=== PATIENT | female | born 1980 | race Caucasian/White ===

== ENCOUNTER 2018-05-30 15:13 | Emergency (ER) | payer BC ==
[2018-05-30 15:44] VITALS: BP 119/66
--- NOTE | 2018-05-30 16:04 | UC ---
Complaint Female HPI - HPI Summary HPI Summary: Patient has had 4 days of urinary urgency and lower abdomnal pressure, some flank pain on and off. she has been increaing her fluid intake over the past few days as well to flush it out. - History Of Current Complaint Chief Complaint: UCGU Stated Complaint: URINARY Time Seen by Provider: 05/30/18 15:32 Hx Obtained From: Patient Hx Last Menstrual Period: 05/11/18 ?: No Onset/Duration: Sudden Onset, Lasting Days Timing: Constant Severity Initially: Mild Severity Currently: Moderate Pain Intensity: 3 Aggravating Factor(s): Urination Associated Signs And Symptoms: Positive: Back Pain - Allergies/Home Medications Allergies/Adverse Reactions: Allergies Allergy/AdvReac Type Severity Reaction Status Date / Time No Known Allergies Allergy Verified 05/30/18 15:35 Home Medications: Home Medications B1/B2/Niacin/B12/Protease [B-Complex/B-12] 1 tab PO DAILY 05/30/18 [History Confirmed 05/30/18] [place]-3/Dha/Epa/Fish Oil [Fish Oil] 2 cap PO DAILY 05/30/18 [History Confirmed 05/30/18] PMH/Surg Hx/FS Hx/Imm Hx Previously Healthy: Yes - Surgical History Surgical History: Yes Surgery Procedure, Year, and Place: e-sure placement. e-sure removal - Family History Known Family History: Positive: Hypertension - Social History Alcohol Use: Occasionally Substance Use Type: None Smoking Status (MU): Never Smoked Tobacco Review of Systems Constitutional: Negative Skin: Negative Eyes: Negative ENT: Negative Respiratory: Negative Cardiovascular: Negative Gastrointestinal: Negative Genitourinary: Dysuria, Frequency, Urgency Motor: Negative Neurovascular: Negative Musculoskeletal: Negative Neurological: Negative Psychological: Negative Is Patient Immunocompromised?: No All Other Systems Reviewed And Are Negative: Yes Physical Exam Triage Information Reviewed: Yes Appearance: Well-Appearing, Well-Nourished, Pain Distress Vital Signs: Initial Vital Signs Temp 99.2 F 05/30/18 15:37 Pulse 66 05/30/18 15:37 Resp 20 05/30/18 15:37 BP 119/66 05/30/18 15:37 Pulse Ox 99 05/30/18 15:37 Vital Signs Reviewed: Yes Eye Exam: Normal ENT Exam: Normal Dental Exam: Normal Neck exam: Normal Respiratory Exam: Normal Respiratory: Positive: Chest non-tender, Lungs clear, Normal breath sounds Cardiovascular Exam: Normal Cardiovascular: Positive: RRR, No Murmur, Pulses Normal Abdominal Exam: Normal Abdomen Description: Positive: Nontender, No Organomegaly, Soft, CVA Tenderness (R) - neg, CVA Tenderness (L) - neg Musculoskeletal Exam: Normal Musculoskeletal: Positive: Strength Intact, ROM Intact, No Edema Neurological Exam: Normal Neurological: Positive: Alert, Muscle Tone Normal Psychological Exam: Normal Skin Exam: Normal Complaint Female Dx - Course Course Of Treatment: hx obtained, exam performed ,meds reviewed, UA was negative , but symptoms persist, urine culture was sent, treated with short course and diflucan. - Differential Dx/Diagnosis Differential Diagnosis/HQI/PQRI: Urinary Tract Infection, Other - vaginitis Provider Diagnoses: dysuria. urinary frequency Discharge - Sign-Out/Discharge Documenting (check all that apply): Discharge/Admit/Transfer - Discharge Plan Condition: Stable Disposition: HOME Prescriptions: Ciprofloxacin TAB* [Cipro 500 MG TAB*] 500 mg PO BID #6 tab Fluconazole [Diflucan 150 MG (NF)] 150 mg PO ONCE #1 tab Patient Education Materials: Dysuria (ED) Referrals: Rachel Sorensen PA [Primary Care Provider] - Additional Instructions: 1. Take the antibiotic twice a day as prescribed. 2. After you finish the cipro, the next day take the Diflucan one time. 3. I have sent your urine for culture, will call if any change to treatment needs to be done. - Billing Disposition and Condition Condition: STABLE Disposition: Home
== END 2018-05-30 16:00 | disposition home or self-care (01) ==
LOC: UCCORT 15:13
DX: R30.0 Dysuria (principal); R35.0 Frequency of micturition
CPT/HCPCS: 81003; 84702; 87086; 99211; G0463

== ENCOUNTER 2019-01-20 08:41 | Emergency (ER) | payer SELFPAY ==
[2019-01-20 08:59] VITALS: BP 120/67
--- NOTE | 2019-01-20 09:39 | ED ---
HPI Chest Pain - HPI Summary HPI Summary: 38 yr old female with the complaint of chest pain, dizziness. Onset two days ago, constant, and feels like pressure, heaviness in chest. She has discomfort in throat with breathing but not any other time. She has a family history of CAD in her father. She feels light headed and dizzy. Pain is moderate. She states she has right calf pain intermittently with swelling over the past month. - History of Current Complaint Chief Complaint: UCChestPain Time Seen by Provider: 01/20/19 09:03 Hx Last Menstrual Period: 01/11/19 Pain Intensity: 4 - Allergy/Home Medications Allergies/Adverse Reactions: Allergies Allergy/AdvReac Type Severity Reaction Status Date / Time No Known Allergies Allergy Verified 01/20/19 08:52 Home Medications: Home Medications Fluticasone NASAL SPRAY 50MCG* [Flonase NASAL SPRAY 50MCG*] 2 spray BOTH NARES DAILY 01/20/19 [History Confirmed 01/20/19] PMH/Surg Hx/FS Hx/Imm Hx - Surgical History Surgery Procedure, Year, and Place: Essure Removal; Essure Placement; T&A Infectious Disease History: No Infectious Disease History: Denies: Traveled Outside the [place] in Last 30 Days - Family History Known Family History: Positive: Hypertension - Social History Alcohol Use: Occasionally Substance Use Type: Reports: None Smoking Status (MU): Never Smoked Tobacco Review of Systems Positive: Chest Pain Positive: Shortness Of Breath Positive: Other - calf pain All Other Systems Reviewed And Are Negative: Yes Physical Exam Triage Information Reviewed: Yes Vital Signs On Initial Exam: Initial Vitals Temp Pulse Resp BP Pulse Ox 98.2 F 76 16 120/67 100 01/20/19 08:53 01/20/19 08:53 01/20/19 08:53 01/20/19 08:53 01/20/19 08:53 Vital Signs Reviewed: Yes Appearance: Positive: Well-Appearing, No Pain Distress Skin: Positive: Warm, Skin Color Reflects Adequate Perfusion Head/Face: Positive: Normal Head/Face Inspection Eyes: Positive: EOMI ENT: Positive: Normal ENT inspection Neck: Positive: Nontender Respiratory/Lung Sounds: Positive: Clear to Auscultation, Breath Sounds Present Cardiovascular: Positive: RRR. Negative: Murmur Abdomen Description: Positive: Nontender Musculoskeletal: Positive: Strength/ROM Intact Neurological: Positive: Sensory/Motor Intact, Alert, Oriented to Person Place, Time, CN Intact II-III, Normal Gait, Speech Normal Psychiatric: Positive: Normal - [place] Coma Scale Best Eye Response: 4 - Spontaneous Best Motor Response: 6 - Obeys Commands Best Verbal Response: 5 - Oriented Coma Scale Total: 15 Diagnostics - Vital Signs Vital Signs Temp Pulse Resp BP Pulse Ox 01/20/19 08:53 98.2 F 76 16 120/67 100 - Laboratory Lab Statement: Any lab studies that have been ordered have been reviewed, and results considered in the medical decision making process. - EKG 01/20/19 Cardiac Rate: NL - WA interval short EKG Rhythm: Sinus Rhythm ST Segment: Normal Ectopy: None Chest Pain Course/Dx - Course Course Of Treatment: 38 yr old with chest pain, dizziness. She refuses EMS transport to the ER for further work up and management. - Diagnoses Provider Diagnoses: Chest pain, Dizziness Discharge - Sign-Out/Discharge Documenting (check all that apply): Patient Departure All imaging exams completed and their final reports reviewed: No Studies - Discharge Plan Condition: Good Disposition: AGAINST MEDICAL ADVICE Referrals: Rachel Sorensen PA [Primary Care Provider] - - Billing Disposition and Condition Condition: GOOD Disposition: Against Medical Advice
== END 2019-01-20 09:35 | disposition left against medical advice (07) ==
LOC: UCCORT 08:41
DX: R07.9 Chest pain, unspecified (principal); R42 Dizziness and giddiness; M79.661 Pain in right lower leg; R09.89 Other specified symptoms and signs involving the circulatory and respiratory systems; Z82.49 Family history of ischemic heart disease and other diseases of the circulatory system
CPT/HCPCS: 93005; 99212; G0463

== ENCOUNTER 2020-02-20 07:39 | Emergency (ER) | payer BC ==
[2020-02-20 07:50] VITALS: BP 121/69
--- NOTE | 2020-02-20 08:07 | UC ---
Complaint Female HPI - HPI Summary HPI Summary: Dysuria x1 wk after new partner. has been trying to visit pcp. has Frequency and burning on urination with a little itching. OTC cream has not worked. no recent travel or exposure to COVID-19. - History Of Current Complaint Chief Complaint: UCGU Stated Complaint: URINARY COMPLAINT Time Seen by Provider: 02/20/20 07:54 Hx Obtained From: Patient Hx Last Menstrual Period: 01/11/19 Onset/Duration: Gradual Onset Pain Intensity: 4 Pain Scale Used: 0-10 Numeric Character: Burning Aggravating Factor(s): Urination Alleviating Factor(s): Nothing - Allergies/Home Medications Allergies/Adverse Reactions: Allergies Allergy/AdvReac Type Severity Reaction Status Date / Time No Known Allergies Allergy Verified 02/20/20 07:50 Home Medications: Home Medications Azithromycin 500 mg Tab 500 mg PO ONCE 1 Days #2 tablet 02/20/20 [Rx] PMH/Surg Hx/FS Hx/Imm Hx - Additional Past Medical History Additional PMH: no chronic illness Previously Healthy: Yes - Surgical History Surgical History: Yes Surgery Procedure, Year, and Place: Essure Removal; Essure Placement; T&A - Family History Known Family History: Positive: Hypertension - Social History Alcohol Use: Occasionally Substance Use Type: None Smoking Status (MU): Never Smoked Tobacco Review of Systems All Other Systems Reviewed And Are Negative: Yes Constitutional: Negative: Fever, Chills Genitourinary: Positive: Dysuria. Negative: Hematuria, Frequency, Urgency, Vaginal/Penile Discharge Neurological/Mental Status: Negative: Headache Physical Exam Triage Information Reviewed: Yes Appearance: Well-Appearing Vital Signs: Initial Vital Signs Temp 98.1 F 02/20/20 07:45 Pulse 66 02/20/20 07:45 Resp 18 02/20/20 07:45 BP 121/69 02/20/20 07:45 Pulse Ox 100 02/20/20 07:45 Vital Signs Reviewed: Yes Respiratory: Positive: No respiratory distress Abdomen Description: Positive: Nontender, Soft. Negative: Bruit, CVA Tenderness (R), CVA Tenderness (L) Complaint Female Dx - Course Course Of Treatment: Dysuria w/ possible UTI that will be sent for cx. We will also r/o chlam/vesna given new partner; she self swabbed after we did pt. education. will tx for presumptive sti. vitals : good - Differential Dx/Diagnosis Differential Diagnosis/HQI/PQRI: Sexually Transmitted Disease, Urinary Tract Infection, Other Provider Diagnosis: Dysuria Discharge ED - Sign-Out/Discharge Documenting (check all that apply): Patient Departure All imaging exams completed and their final reports reviewed: No Studies - Discharge Plan Condition: Good Disposition: HOME Prescriptions: Azithromycin 500 mg Tab 500 mg PO ONCE 1 Days #2 tablet Patient Education Materials: Dysuria (ED) Referrals: Rachel Sorensen PA [Primary Care Provider] - Additional Instructions: If not improving please return. - Billing Disposition and Condition Condition: GOOD Disposition: Home
[2020-02-21 13:51] LABS: Chlamydia trachomatis NAA Negative (Negative); Neisseria gonorrhoeae (GC) NAA Negative (Negative)
--- NOTE | 2020-02-22 10:52 | UC ---
- Progress Note Progress Note: Please call pt - neg GC/CH + Jennifer - RX diflucan sent to pharmacy [facility] Course/Dx - Diagnoses Provider Diagnoses: Dysuria Discharge ED - Sign-Out/Discharge Documenting (check all that apply): Post-Discharge Follow Up All imaging exams completed and their final reports reviewed: No Studies - Discharge Plan Condition: Good Disposition: HOME Prescriptions: Azithromycin 500 mg Tab 500 mg PO ONCE 1 Days #2 tablet Fluconazole 150 MG TAB* [Diflucan 150 MG TAB*] 150 mg PO ONCE #1 tablet Patient Education Materials: Dysuria (ED) Referrals: Rachel Sorensen PA [Primary Care Provider] - Additional Instructions: If not improving please return. - Billing Disposition and Condition Condition: GOOD Disposition: Home
== END 2020-02-20 08:25 | disposition home or self-care (01) ==
LOC: UCCORT 07:39
DX: R30.0 Dysuria (principal); R35.0 Frequency of micturition; L29.2 Pruritus vulvae
CPT/HCPCS: 81003; 84702; 87086; 87106; 87491; 87591; 99212; G0463